=== PATIENT | female | born 1965 | race Caucasian/White ===

== ENCOUNTER 2017-10-25 16:42 | Emergency (ER) | payer BC ==
[~2017-10-25] VITALS: Ht 167.6 cm; Wt 76.8 kg
[2017-10-25 16:52] VITALS: TEMP 36.8; Ht 167.6 cm; Wt 76.8 kg
--- NOTE | 2017-10-25 18:24 | EMERGENCY ROOM VISIT NOTE ---
History Report prepared by Elmo: Pati Knapp Under the Supervision of: Dr. Juan Maya M.D. First contact with patient: 18:01 Chief Complaint: CHEST PAIN Stated Complaint: CHEST/BACK PAIN, LEFT ARM WEAK, HARD TO BREATHE Nursing Triage Summary: mid to left sided chest pain that radiates into back. Feels like she cant take a full deep breath. Denies any recent long travel. Denies cough. Denies cardiac history. Previous stress test was unremarkable. History of Present Illness The patient is a 52 year old female who presents to the Emergency Room with complaints of worsening chest pain starting yesterday morning. She states that it was not that bad yesterday, but was much worse waking up this morning. She states that the pain is in the center of her chest and radiates to her back. She describes the pain as sharp. She states that she noticed her left arm is now weak. The patient reports that the pain is worse with movement and breathing. The patient complains of fatigue. The patient denies being a smoker, recent injury, history of blood clots, abdominal pain, hematochezia, recent travel, and having Diabetes. The patient notes a history of Josie. She notes a family history of coronary artery disease and hypertension. She states that she had a stress test last year after her grandmother had stent placed. Source of History: patient Onset: yesterday morning Position: chest Quality: sharp Timing: worsening Modifying Factors (Worsening): breathing, movement Associated Symptoms: + back pain, + fatigue, + weakness, No abdominal pain, No hematochezia Review of Systems See HPI for pertinent positives & negatives. A total of 10 systems reviewed and were otherwise negative. 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 Nurse's notes were reviewed and I agree with. Family History FH: heart disease Hypertension Social History Smoking Status: Former Smoker Alcohol Use: none Drug Use: none Marital Status: Housing Status: lives with family Occupation Status: employed Current/Historical Medications Scheduled Aspirin (Aspirin Chewable), 81 MG PO UD Cholecalciferol (Vitamin D-3), 0 PO 1200 Cyanocobalamin (Vitamin B12), 0 PO 1200 Ibuprofen Tab (Advil), 400 MG PO UD Levothyroxine Sodium (Levothyroxine Sodium), 1 TAB PO QAM [Thyroid Action], 1 TAB PO QAM Allergies Coded Allergies: Codeine (Unverified Allergy, Severe, NAUSEA/VOMITTING, 10/25/17) Physical Exam Vital Signs Date Time Temp Pulse Resp B/P (MAP) Pulse Ox O2 Delivery O2 Flow Rate FiO2 10/25/17 22:03 66 18 114/66 97 10/25/17 20:58 68 18 116/71 98 Room Air 10/25/17 19:02 116/75 10/25/17 19:00 73 22 99 Room Air 10/25/17 18:45 67 20 10/25/17 18:19 70 10/25/17 16:56 99 Room Air 10/25/17 16:52 36.8 77 17 124/73 99 Room Air Physical Exam General: Non-ill appearing middle aged in no acute distress. HEENT: Normal cephalic atraumatic. Pupils are equal round and reactive to light. Extraocular movements are intact. Oropharynx is pink with moist mucous membranes. No swelling of the mouth lips or tongue. Neck: Supple with a midline trachea. No meningeal signs or stiffness, no JVD or bruits. No Stridor. Chest: Clear to auscultation bilaterally. No wheezes or rhonchi. No increased work of breathing. Pain is exacerbated with breathing. No respiratory distress. Heart: regular rate and rhythm. Abdomen: Soft nontender, nondistended without rebound guarding or rigidity. Extremities: No cyanosis clubbing or edema. No calf tenderness or assymetry Spine/Back. Non tender to palpation. No CVA tenderness Skin: Good turgor without rashes. Neurologic exam: Cranial nerves two through 12 are intact. Motor and sensation are intact and symmetrical throughout. LUE has normal strength and pulses on exam. Medical Decision & Procedures ER Provider Diagnostic Interpretation: Radiology results as stated below per my review and radiologist interpretation: CHEST COMBO ANGIO DISSECTION CLINICAL HISTORY: 52 years-old Female presenting with ^eval for aortic dissection ^chest and left post cp. TECHNIQUE: Multidetector CT angiography of the chest was performed before and after the administration of intravenous contrast. 3-D volumetric and/or maximum intensity projection (MIP) images were subsequently reconstructed for review. IV contrast: 119 mL of Optiray 320. A dose lowering technique was used consistent with the principles of ALARA (as low as reasonably achievable). COMPARISON: None. CT DOSE (mGy.cm): The estimated cumulative dose is 554.09 mGy.cm. FINDINGS: Back Tender Cylinder topogram: Unremarkable. Vasculature: The study is adequate for assessment of the aorta. Precontrast imaging demonstrates no evidence of intramural hematoma. Postcontrast imaging demonstrates no evidence of dissection, penetrating ulcer, or aneurysm. Allowing for timing of the contrast bolus, no gross evidence of a filling defect within the pulmonary arteries to suggest embolus. Main pulmonary artery is not enlarged. No flattening of the interventricular septum. No intracardiac filling defect. Reflux of contrast into the intrahepatic IVC. Remaining chest: On soft tissue windows, subcentimeter nodule may be present in the right thyroid lobe. No axillary, supraclavicular, hilar, or mediastinal lymphadenopathy. Normal heart size. No pericardial or pleural effusion. Upper abdomen normal. On lung windows, minimal dependent changes likely atelectasis. No other focal nodule or infiltrate. Airways patent. On bone windows, degenerative changes of the spine. IMPRESSION: 1. No evidence of acute aortic injury. No acute intrathoracic pathology. Electronically signed by: Luis Newton M.D. 10/25/2017 7:49 PM Dictated Date/Time: 10/25/2017 7:44 PM CHEST ONE VIEW PORTABLE CLINICAL HISTORY: 52 years-old Female presenting with CHEST PAIN. TECHNIQUE: Portable upright AP view of the chest was obtained. COMPARISON: None. FINDINGS: Atherosclerosis of the aortic arch. Cardiac silhouette normal in size. Lungs and pleural spaces clear. Osseous structures normal. Upper abdomen normal. IMPRESSION: 1. No acute cardiopulmonary disease. Electronically signed by: Luis Newton M.D. 10/25/2017 6:52 PM Dictated Date/Time: 10/25/2017 6:52 PM Laboratory Results 10/25/17 18:10 Red Blood Count 5.03, Mean Corpuscular Volume 87.9, Mean Corpuscular Hemoglobin 29.6, Mean Corpuscular Hemoglobin Concent 33.7, Mean Platelet Volume 11.0, Neutrophils (%) (Auto) 67.2, Lymphocytes (%) (Auto) 22.0, Monocytes (%) (Auto) 7.8, Eosinophils (%) (Auto) 2.3, Basophils (%) (Auto) 0.4, Neutrophils # (Auto) 5.23, Lymphocytes # (Auto) 1.71, Monocytes # (Auto) 0.61, Eosinophils # (Auto) 0.18, Basophils # (Auto) 0.03 10/25/17 18:10 Test 10/25/17 18:10 10/25/17 18:24 10/25/17 20:27 White Blood Count 7.78 K/uL (4.8-10.8) Red Blood Count 5.03 M/uL (4.2-5.4) Hemoglobin 14.9 g/dL (12.0-16.0) Hematocrit 44.2 % (37-47) Mean Corpuscular Volume 87.9 fL (80-100) Mean Corpuscular Hemoglobin 29.6 pg (25-34) Mean Corpuscular Hemoglobin Concent 33.7 g/dl (32-36) Platelet Count 201 K/uL (130-400) Mean Platelet Volume 11.0 fL (7.4-10.4) Neutrophils (%) (Auto) 67.2 % Lymphocytes (%) (Auto) 22.0 % Monocytes (%) (Auto) 7.8 % Eosinophils (%) (Auto) 2.3 % Basophils (%) (Auto) 0.4 % Neutrophils # (Auto) 5.23 K/uL (1.4-6.5) Lymphocytes # (Auto) 1.71 K/uL (1.2-3.4) Monocytes # (Auto) 0.61 K/uL (0.11-0.59) Eosinophils # (Auto) 0.18 K/uL (0-0.5) Basophils # (Auto) 0.03 K/uL (0-0.2) RDW Standard Deviation 43.3 fL (36.4-46.3) RDW Coefficient of Variation 13.4 % (11.5-14.5) Immature Granulocyte % (Auto) 0.3 % Immature Granulocyte # (Auto) 0.02 K/uL (0.00-0.02) Anion Gap 5.0 mmol/L (3-11) Est Creatinine Clear Calc Drug Dose 80.1 ml/min Estimated GFR () 90.0 Estimated GFR (Non- 77.7 BUN/Creatinine Ratio 17.8 (10-20) Calcium Level 9.1 mg/dl (8.5-10.1) Total Bilirubin 0.6 mg/dl (0.2-1) Direct Bilirubin 0.2 mg/dl (0-0.2) Aspartate Amino Transf (AST/SGOT) 23 U/L (15-37) Alanine Aminotransferase (ALT/SGPT) 30 U/L (12-78) Alkaline Phosphatase 95 U/L (45-117) Total Creatine Kinase 158 U/L (26-192) Creatine Kinase MB 1.4 ng/ml (0.5-3.6) Creatine Kinase MB Ratio 0.9 (0-3.0) Total Protein 8.2 gm/dl (6.4-8.2) Albumin 4.1 gm/dl (3.4-5.0) Lipase 166 U/L (73-393) Human Chorionic Gonadotropin, Qual NEG (NEG) Bedside D-Dimer 322 ng/mlFEU (0-450) Bedside Troponin I < 0.030 ng/ml (0-0.045) Laboratory studies as stated above per my review. Medications Administered Medications (Trade) Dose Ordered Sig/Emily Route Start Time Stop Time Status Last Admin Dose Admin Ketorolac Tromethamine (Toradol Inj) 30 mg NOW STAT IV 10/25/17 18:54 10/25/17 18:56 DC 10/25/17 19:03 30 MG ECG Indication: chest pain Rate (beats per minute): 69 Rhythm: normal sinus Findings: no acute ischemic change, no ectopy, other (normal intervals, normal QTc interval) Comparison ECG Date: REPEAT EKG Change: Patient's electrocardiogram was interpreted by me. Repeat EKG: Sinus bradycardia. Rate of 55. No acute ischemic change. No ectopy. No change from the first EKG. Normal axis. Normal QT. ED Course 1801: Past medical records reviewed. The patient was evaluated in room A4B, and a complete history and physical examination were performed. 1852: I reevaluated the patient and she appears comfortable. I ordered her Toradol for the pain. I ordered her a CT of her chest and explained the risks and benefits to her. She agrees. 1853: Ordered Toradol Inj 30 mg IV. 2038: I reevaluated the patient and she is doing well. 2154: Upon reevaluation, the patient is resting comfortable. I discussed the results and treatment plan with her. She verbalized agreement of the treatment plan. The patient was discharged home. Medical Decision Differential diagnoses include cardiac disease, arrhythmia, PE, aortic disease, infection, electrolyte abnormality, metabolic abnormality. This patient comes in as described above. She was placed in room A4. She is here for treatment and evaluation of chest and back pain. she also feels like she may have some weakness or tingling in her arm. her symptoms are worse when she moves or takes a deep breath. She's had no trauma. She does work in housekeeping. On exam, she appears non-ill and she has no neurologic deficits. She has good pulses in the arms. The symptoms are going on since yesterday. EKG shows no acute ischemic changes or ectopy. I did a second EKG while she was here and she has no change compared to her to the first. she has a negative troponin and a second negative troponin several hours later. Despite having multiple hours of pain since yesterday, the troponin have not bumped therefore is unlikely cardiac. I did a chest CT that has no evidence of dissection or other pathology. Her d-dimer was negative as well and I do not think is likely a PE. she's had nothing to suggest pneumonia or pneumothorax or CHF. This may be musculoskeletal. She feels good and would like to go home and have her use ibuprofen and follow up with her regular doctor. return if: increasing pain , worsening of symptoms, numbness or weakness, shortness of breath, chest pain, any new problems or concerns. She is happy with plan and was discharged to home. Medication Reconcilliation Current Medication List: was personally reviewed by me Blood Pressure Screening Patient's blood pressure: Normal blood pressure Blood pressure disposition: Did not require urgent referral Impression Primary Impression: Left-sided back pain Additional Impression: Pleurisy Scribe Attestation The scribe's documentation has been prepared under my direction and personally reviewed by me in its entirety. I confirm that the note above accurately reflects all work, treatment, procedures, and medical decision making performed by me. Departure Information Dispostion Home / Self-Care Referrals Tayler Lyles DO (PCP) Forms Call Back Authorization, HOME CARE DOCUMENTATION FORM, IMPORTANT VISIT INFORMATION Patient Instructions My [facility] Additional Instructions Rest. Drink plenty of fluids. Use ibuprofen 400 mg every 6 hours, take with food Return if: Increasing pain, shortness of breath, worsening symptoms, any new problems or concerns. Follow-up with your doctor in 1-2 days for recheck. Problem Qualifiers
[2017-10-25 18:30] LABS: BASO % 0.4 %; BASO ABS # 0.03 K/uL (0-0.2); EOS % 2.3 %; EOS ABS # 0.18 K/uL (0-0.5); HEMATOCRIT 44.2 % (37-47); HEMOGLOBIN 14.9 g/dL (12.0-16.0); IG# 0.02 K/uL (0.00-0.02); LYMPH ABS # 1.71 K/uL (1.2-3.4); MEAN CELL VOLUME 87.9 fL (80-100); MEAN CORPUSCULAR HEMOGLOBIN 29.6 pg (25-34); MEAN CORPUSCULAR HGB CONC 33.7 g/dl (32-36); MONO % 7.8 %; MONO ABS # 0.61 K/uL (0.11-0.59); NEUT % 67.2 %; NEUT ABS # 5.23 K/uL (1.4-6.5); PLATELET COUNT 201 K/uL (130-400); RED CELL DISTRIBUTION WIDTH CV 13.4 % (11.5-14.5); RED CELL DISTRIBUTION WIDTH SD 43.3 fL (36.4-46.3); WHITE BLOOD COUNT 7.78 K/uL (4.8-10.8)
[2017-10-25 18:47] LABS: ALBUMIN 4.1 gm/dl (3.4-5.0); CALCIUM 9.1 mg/dl (8.5-10.1); CREATININE 0.86 mg/dl (0.60-1.20); POTASSIUM 3.9 mmol/L (3.5-5.1)
[2017-10-25 18:52] LABS: CKMB 1.4 ng/ml (0.5-3.6); TOTAL PROTEIN 8.2 gm/dl (6.4-8.2)
[2017-10-25] MEDS ORDERED: KETOROLAC TROMETHAMINE 30 MG/ML VIAL IV STA (18:54)
--- NOTE | 2017-10-25 18:54 | DIAGNOSTIC IMAGING REPORT ---
CHEST ONE VIEW PORTABLE CLINICAL HISTORY: 52 years-old Female presenting with CHEST PAIN. TECHNIQUE: Portable upright AP view of the chest was obtained. COMPARISON: None. FINDINGS: Atherosclerosis of the aortic arch. Cardiac silhouette normal in size. Lungs and pleural spaces clear. Osseous structures normal. Upper abdomen normal. IMPRESSION: 1. No acute cardiopulmonary disease. Electronically signed by: Luis Newton M.D. 10/25/2017 6:52 PM Dictated Date/Time: 10/25/2017 6:52 PM
[2017-10-25] MEDS ORDERED: OPTIRAY 320 IV PRN (19:15)
--- NOTE | 2017-10-25 19:50 | DIAGNOSTIC IMAGING REPORT ---
CHEST COMBO ANGIO DISSECTION CLINICAL HISTORY: 52 years-old Female presenting with ^eval for aortic dissection ^chest and left post cp. TECHNIQUE: Multidetector CT angiography of the chest was performed before and after the administration of intravenous contrast. 3-D volumetric and/or maximum intensity projection (MIP) images were subsequently reconstructed for review. IV contrast: 119 mL of Optiray 320. A dose lowering technique was used consistent with the principles of ALARA (as low as reasonably achievable). COMPARISON: None. CT DOSE (mGy.cm): The estimated cumulative dose is 554.09 mGy.cm. FINDINGS: District Recruiter topogram: Unremarkable. Vasculature: The study is adequate for assessment of the aorta. Precontrast imaging demonstrates no evidence of intramural hematoma. Postcontrast imaging demonstrates no evidence of dissection, penetrating ulcer, or aneurysm. Allowing for timing of the contrast bolus, no gross evidence of a filling defect within the pulmonary arteries to suggest embolus. Main pulmonary artery is not enlarged. No flattening of the interventricular septum. No intracardiac filling defect. Reflux of contrast into the intrahepatic IVC. Remaining chest: On soft tissue windows, subcentimeter nodule may be present in the right thyroid lobe. No axillary, supraclavicular, hilar, or mediastinal lymphadenopathy. Normal heart size. No pericardial or pleural effusion. Upper abdomen normal. On lung windows, minimal dependent changes likely atelectasis. No other focal nodule or infiltrate. Airways patent. On bone windows, degenerative changes of the spine. IMPRESSION: 1. No evidence of acute aortic injury. No acute intrathoracic pathology. Electronically signed by: Luis Newton M.D. 10/25/2017 7:49 PM Dictated Date/Time: 10/25/2017 7:44 PM
[2017-10-25] MEDS ORDERED: LEVO88TA3 PO (19:57)
[2017-10-25] MEDS ORDERED: [UNRECOGNIZED DRUG - OTHER] PO (20:02)
[2017-10-25] MEDS ORDERED: CYAN100020 PO (20:02)
[2017-10-25] MEDS ORDERED: CHOL1CAP67 PO (20:02)
[2017-10-25] MEDS ORDERED: IBUP-103 PO (20:03)
[2017-10-25] MEDS ORDERED: ASPCH81X PO (20:04)
[2017-10-25 22:03] VITALS: BP 114/66; PULSE 66; O2SAT 97
== END 2017-10-25 22:03 | disposition home or self-care (01) ==
LOC: C.EDB 16:44 → C.EDA 22:03
DX: R09.1 Pleurisy (principal); M54.9 Dorsalgia, unspecified; R06.00 Dyspnea, unspecified; E06.3 Autoimmune thyroiditis; Z79.899 Other long term (current) drug therapy; Z88.5 Allergy status to narcotic agent

== ENCOUNTER 2023-03-23 17:50 | Observation (INO) ==
[2023-03-23 18:51] LABS: Basophils # (auto) 0.05 K/uL (0-0.2); Basophils % (auto) 0.6 %; Eosinophils # (auto) 0.11 K/uL (0-0.50); Eosinophils % (auto) 1.3 %; Hematocrit (blood only) 41.4 % (37.0-47.0); Immature Granulocytes # (auto) 0.02 K/uL (0.01-0.20); Immature Granulocytes % (auto) 0.2 %; Lymphocytes # (auto) 1.18 K/uL (1.2-3.4); Lymphocytes % (auto) 13.8 %; Mean Corpuscular Hemoglobin 29.6 pg (25.0-34.0); Mean Corpuscular Hgb Conc 33.8 g/dL (32.0-36.0); Mean Corpuscular Volume 87.5 fL (80.0-100.0); Monocytes # (auto) 0.64 K/uL (0.11-0.59); Monocytes % (auto) 7.5 %; Neutrophils # (auto) 6.56 K/uL (1.40-6.50); Neutrophils % (auto) 76.6 %; Platelet Count 187 K/uL (130-400); RDW Coefficient of Variation 13.2 % (11.5-14.5); RDW Standard Deviation 42.4 fL (36.4-46.3); Red Blood Count 4.73 M/uL (4.20-5.40); White Blood Count 8.56 K/ul (4.8-10.8)
[2023-03-23 18:56] LABS: Albumin Globulin Ratio 1.4 (0.9-2); Albumin Level 4.2 gm/dl (3.4-5.0); BUN Creatinine Ratio 22.9 (10-20); Bilirubin,Total 0.8 mg/dl (0.2-1.0); Calcium 9.3 mg/dl (8.6-10.3); Creatinine Clr Calc Pharmacy 80.3 ml/min; Est GFR (African American) 90.7 ml/min; Est GFR (Non-African American) 78.3 ml/min; Globulin 3.1 gm/dl (2.5-4.0); Potassium 4.2 mmol/L (3.5-5.1); Total Protein 7.3 gm/dl (6.0-8.3)
[2023-03-23 19:26] LABS: Appearance Urine Clear (Clear); Bacteria Urine Automated Negative (Negative); Bilirubin Urine Negative (Negative); Blood Urine Negative (Negative); Color Urine Yellow; Epithelial Cell Urine Auto >30 /lpf (0-5); Glucose Urine UA Negative (Negative); Ketones Urine Trace (Negative); Leukocyte Esterase Urine 1+ (Negative); Nitrite Urine Negative (Negative); Protein Urine Negative (Negative); RBC Urine Automated 0-4 /hpf (0-4); Specific Gravity Urine 1.023 (1.000-1.030); Urobilinogen Urine Negative (Negative)
[2023-03-23] MEDS ORDERED: OPTIRAY 320 100ml IV ONE (19:36)
--- NOTE | 2023-03-23 19:48 | Emergency Department Note ---
Impression & Plan Appendicitis ED Provider Note Provider: Manpreet Salinas MD DATE OF SERVICE: 03/23/2023 CHIEF COMPLAINT: Right-sided abdominal pain HISTORY OF PRESENT ILLNESS: Patient is a 57-year-old female history of hypothyroidism presenting here today with onset about 36 hours ago of some right-sided abdominal discomfort. Decreased appetite but no severe nausea or diarrhea. Pain improved a bit with ibuprofen. Persistence and some tenderness and worse with movement. Denies history of abdominal surgery. Denies left- sided abdominal pain. Denies urinary symptoms. Did some googling and was concerned this could represent her appendix so came in for evaluation given the weekend. PAST MEDICAL HISTORY: As noted above MEDICATIONS: Reviewed home medications SOCIAL HISTORY: Non smoke PHYSICAL EXAM: GENERAL: alert and oriented in no acute distress on stretcher Head: normocephalic and atraumatic EYES: No injection, discharge or icterus. NECK: Trachea midline. ENT: Mucous membranes pink and moist. LUNGS: Airway patent. No retractions or tachypnea HEART: Regular rate and rhythm. No chest wall tenderness ABDOMEN: Soft with right-sided tenderness particular in the right lower quadrant. No guarding or left-sided tenderness. Not impressive right upper quadrant tenderness. SKIN: Acyanotic, warm, dry, without rashes EXTREMITIES: Without swelling, tenderness or deformity NEUROLOGICAL: No focal deficits. No aphasia. No facial droop or slurred speech. Normal strength and tone in the extremities. Sensation to gross touch normal. Ambulatory. Patient's laboratory studies and imaging reviewed. Differential includes Appendicitis, infections, diverticulitis, UTI, obstruction, mesenteric ischemia, aortic pathology, inflammatory bowel disease, renal colic, PUD, pancreatitis, biliary pathology, hernia, volvulus, constipation, as well as other pathologies. IMPRESSION/MEDICAL DECISION MAKING: Patient with some right-sided discomfort. She has some tenderness here more in the right lower quadrant. Seems atypical for kidney stone also location is seemingly somewhat low for cholecystitis. Does not seem peritoneal and doubt perforation. Does not seem obstructed. Denies urinary symptoms. Would seem very atypical for pulmonary or cardiac pathology given location. Denies need for pain medication. Denies significant nausea. Blood work here reassuring without significant leukocytosis. No signs of hepatitis or pancreatitis based on labs. Normal renal function. CT scan completed with evidence of acute appendicitis nonperforated. Discussed with surgery team. Given some Toradol for pain and Zosyn for antibiotics. Seen by the surgery team and consented to go to the OR for definite care. DIAGNOSIS: Acute appendicitis DISPOSITION: Further care with the surgical team Past Med/Surg History Medical History H/O Josie thyroiditis Surgical History No pertinent past surgical history Social History Smoking Status: Never smoker Hx Alcohol Use: Yes Hx Substance Use: No Feels Safe at Home: Yes Allergies Allergies Allergy/AdvReac Type Severity Reaction Status Date / Time codeine Allergy Severe NAUSEA/VOMI Unverified 07/24/21 07:23 TTING Home Meds Home Medications Medication Instructions Recorded Confirmed levothyroxine 100 mcg tablet 100 mcg PO HS 07/24/21 08/08/21 (Synthroid) multivitamin 1 tab PO QAM 07/24/21 08/08/21 ibuprofen 200 mg tablet 400 mg PO Q6H PRN Headache 08/08/21 08/08/21 Results & Data (ED) Vital Signs Vital Signs - 24 hr 03/23/23 17:56 03/23/23 19:07 03/23/23 21:13 Temperature 36.5 C Temperature Source Temporal Artery Scan Pulse Rate 81 Pulse Rate [Finger] 73 77 Pulse Rhythm Regular Pulse Rhythm [Finger] Regular Respiratory Rate 20 18 18 Respiratory Effort / Characteristics Non-Labored Spontaneous Non-Labored Spontaneous Non-Labored Spontaneous Respiratory Depth Normal Normal Normal Respiratory Pattern Regular Regular Blood Pressure 115/82 Blood Pressure [Right Arm] 123/71 124/76 Blood Pressure Mean 93 Blood Pressure Mean [Right Arm] 88 92 Blood Pressure Position [Right Arm] Lying Lying Pulse Oximetry 98 96 97 Oxygen Delivery Method Room Air Room Air Room Air Sepsis Recent Fever Within 48 Hours No Sepsis New/Unexplained Change in Mental Status No Sepsis Action Taken by Nursing No Action Required 03/23/23 21:15 03/23/23 22:19 Temperature Temperature Source Pulse Rate 73 Pulse Rate [Finger] Pulse Rhythm Pulse Rhythm [Finger] Respiratory Rate Respiratory Effort / Characteristics Respiratory Depth Respiratory Pattern Blood Pressure Blood Pressure [Right Arm] Blood Pressure Mean Blood Pressure Mean [Right Arm] Blood Pressure Position [Right Arm] Pulse Oximetry Oxygen Delivery Method Room Air Sepsis Recent Fever Within 48 Hours Sepsis New/Unexplained Change in Mental Status Sepsis Action Taken by Nursing Laboratory Data 03/23/23 18:13 03/23/23 18:13 Lab Results 03/23/23 03/23/23 03/23/23 Range/Units 18:13 18:13 18:58 WBC 8.56 (4.8-10.8) K/ul RBC 4.73 (4.20-5.40) M/uL Hgb 14.0 (12.0-16.0) g/dl Hct 41.4 (37.0-47.0) % MCV 87.5 (80.0-100.0) fL MCH 29.6 (25.0-34.0) pg MCHC 33.8 (32.0-36.0) g/dL RDW Std Deviation 42.4 (36.4-46.3) fL RDW Coeff of Abilio 13.2 (11.5-14.5) % Plt Count 187 (130-400) K/uL MPV 11.0 (9.4-12.4) fL Immature Gran % (Auto) 0.2 % Neut % (Auto) 76.6 % Lymph % (Auto) 13.8 % [place] % (Auto) 7.5 % Eos % (Auto) 1.3 % Baso % (Auto) 0.6 % Neut # (Auto) 6.56 H (1.40-6.50) K/uL Lymph # (Auto) 1.18 L (1.2-3.4) K/uL [place] # (Auto) 0.64 H (0.11-0.59) K/uL Eos # (Auto) 0.11 (0-0.50) K/uL Baso # (Auto) 0.05 (0-0.2) K/uL Immature Gran # (Auto) 0.02 (0.01-0.20) K/uL Sodium 139 (136-145) mmol/L Potassium 4.2 (3.5-5.1) mmol/L Chloride 104 (98-107) mmol/L Carbon Dioxide 27 (21-32) mmol/L Anion Gap 8 (3-11) BUN 19 (6-23) mg/dl Creatinine 0.83 (0.6-1.2) mg/dl Est Cr Clr Drug Dosing 80.3 ml/min Est GFR ( Amer) 90.7 ml/min Est GFR (Non-Af Amer) 78.3 ml/min BUN/Creatinine Ratio 22.9 H (10-20) Glucose 96 (70-99(Fasting)) mg/dl Calcium 9.3 (8.6-10.3) mg/dl Total Bilirubin 0.8 (0.2-1.0) mg/dl AST 26 (13-39) U/L ALT 24 (7-52) U/L Alkaline Phosphatase 79 (34-104) U/L Total Protein 7.3 (6.0-8.3) gm/dl Albumin 4.2 (3.4-5.0) gm/dl Globulin 3.1 (2.5-4.0) gm/dl Albumin/Globulin Ratio 1.4 (0.9-2) Lipase 27 (11-82) U/L Urine Color Yellow Urine Appearance Clear (Clear) Urine pH 7.0 (4.5-7.5) Ur Specific [place] 1.023 (1.000-1.030) Urine Protein Negative (Negative) Urine Glucose (UA) Negative (Negative) Urine Ketones Trace H (Negative) Urine Blood Negative (Negative) Urine Nitrite Negative (Negative) Urine Bilirubin Negative (Negative) Urine Urobilinogen Negative (Negative) Ur Leukocyte Esterase 1+ H (Negative) Urine WBC (Auto) 1-5 (0-5) /hpf Urine RBC (Auto) 0-4 (0-4) /hpf U Hyaline Cast (Auto) 1-5 (0-5) /lpf U Epithel Cells (Auto) >30 H (0-5) /lpf Urine Bacteria (Auto) Negative (Negative) SARS-CoV-2, RNA, NAAT (NEGATIVE) 03/23/23 Range/Units 21:47 WBC (4.8-10.8) K/ul RBC (4.20-5.40) M/uL Hgb (12.0-16.0) g/dl Hct (37.0-47.0) % MCV (80.0-100.0) fL MCH (25.0-34.0) pg MCHC (32.0-36.0) g/dL RDW Std Deviation (36.4-46.3) fL RDW Coeff of Abilio (11.5-14.5) % Plt Count (130-400) K/uL MPV (9.4-12.4) fL Immature Gran % (Auto) % Neut % (Auto) % Lymph % (Auto) % [place] % (Auto) % Eos % (Auto) % Baso % (Auto) % Neut # (Auto) (1.40-6.50) K/uL Lymph # (Auto) (1.2-3.4) K/uL [place] # (Auto) (0.11-0.59) K/uL Eos # (Auto) (0-0.50) K/uL Baso # (Auto) (0-0.2) K/uL Immature Gran # (Auto) (0.01-0.20) K/uL Sodium (136-145) mmol/L Potassium (3.5-5.1) mmol/L Chloride (98-107) mmol/L Carbon Dioxide (21-32) mmol/L Anion Gap (3-11) BUN (6-23) mg/dl Creatinine (0.6-1.2) mg/dl Est Cr Clr Drug Dosing ml/min Est GFR ( Amer) ml/min Est GFR (Non-Af Amer) ml/min BUN/Creatinine Ratio (10-20) Glucose (70-99(Fasting)) mg/dl Calcium (8.6-10.3) mg/dl Total Bilirubin (0.2-1.0) mg/dl AST (13-39) U/L ALT (7-52) U/L Alkaline Phosphatase (34-104) U/L Total Protein (6.0-8.3) gm/dl Albumin (3.4-5.0) gm/dl Globulin (2.5-4.0) gm/dl Albumin/Globulin Ratio (0.9-2) Lipase (11-82) U/L Urine Color Urine Appearance (Clear) Urine pH (4.5-7.5) Ur Specific [place] (1.000-1.030) Urine Protein (Negative) Urine Glucose (UA) (Negative) Urine Ketones (Negative) Urine Blood (Negative) Urine Nitrite (Negative) Urine Bilirubin (Negative) Urine Urobilinogen (Negative) Ur Leukocyte Esterase (Negative) Urine WBC (Auto) (0-5) /hpf Urine RBC (Auto) (0-4) /hpf U Hyaline Cast (Auto) (0-5) /lpf U Epithel Cells (Auto) (0-5) /lpf Urine Bacteria (Auto) (Negative) SARS-CoV-2, RNA, NAAT NEGATIVE (NEGATIVE) Administered Medications Discontinued Medications Bupivacaine HCl (Bupivacaine 0.5 % 5 Mg/1 Ml Mpf 30ml Vial) Confirm Administered Dose 30 ml .ROUTE .STK-MED ONE Stop: 03/23/23 22:15 Last Admin: 03/23/23 23:53 Dose: 10 ml Documented By: OPHELIA Piperacillin Sod/Tazobactam Sod (Zosyn) 4.5 gm in 120 mls @ 240 mls/hr IV NOW ONE Stop: 03/23/23 22:06 Last Admin: 03/23/23 21:47 Dose: 240 mls/hr Documented By: CHARLES Ioversol (Optiray 320 100ml) 93 ml IV ONCE ONE Stop: 03/23/23 19:37 Last Admin: 03/23/23 19:36 Dose: 93 ml Documented By: ADOLFO Ketorolac Tromethamine (Ketorolac Tromethamine 15 Mg/Ml Vial) 15 mg IV NOW STA Stop: 03/23/23 21:26 Last Admin: 03/23/23 21:29 Dose: 15 mg Documented By: CHARLES Scopolamine (Scopolamine 1 Mg Tdsy) Confirm Administered Dose 1 mg TD [facility] ONE Stop: 03/23/23 22:41 Last Admin: 03/23/23 22:48 Dose: 1 mg Documented By: JHONNY Imaging Data Radiologist's Impression: Abdomen/Pelvis CT 03/23/23 19:23 CR Exam(s): CT ABDOMEN + PELVIS With Contrast IV Amt: 93ml optiray 320 EXAM: CT Abdomen and Pelvis With Intravenous Contrast CLINICAL HISTORY: Reason for exam: R abd pain. TECHNIQUE: Axial computed tomography images of the abdomen and pelvis with intravenous contrast. CTDI is 25.23 mGy and DLP is 1238.52 mGy-cm. Automated exposure control was utilized for the study. A dose lowering technique was utilized adhering to the principles of ALARA. CONTRAST: Patient received 93ml optiray 320 of IV contrast COMPARISON: No relevant prior studies available. FINDINGS: Lung bases: Unremarkable. No mass. No consolidation. ABDOMEN: Liver: Unremarkable. No mass. Gallbladder and bile ducts: Unremarkable. No calcified stones. No ductal dilation. Pancreas: Unremarkable. No mass. No ductal dilation. Spleen: Unremarkable. No splenomegaly. Adrenals: Unremarkable. No mass. Kidneys and ureters: Unremarkable. No solid mass. No hydronephrosis. Stomach and bowel: Unremarkable. No obstruction. No mucosal thickening. PELVIS: Appendix: The appendix is inflamed, demonstrating wall thickening and a caliber of 11 mm. Periappendiceal inflammation is seen. Bladder: Unremarkable. No mass. Reproductive: Unremarkable as visualized. ABDOMEN and PELVIS: Intraperitoneal space: Unremarkable. No free air. Trace fluid seen in the pelvis. Bones/joints: No acute fracture. No dislocation. Soft tissues: Unremarkable. Vasculature: Unremarkable. No abdominal aortic aneurysm. Lymph nodes: Unremarkable. No enlarged lymph nodes. IMPRESSION: Acute appendicitis. No evidence of perforation. Communications: Call Doctor Appendicitis Electronically signed by: Ede Rangel MD 03/23/23 21:33 PM Chest X-Ray 03/23/23 21:54 SINGLE VIEW CHEST CLINICAL HISTORY: Preoperative examination FINDINGS: An AP, portable, upright chest radiograph is compared to study dated 07/24/2021. The cardiomediastinal silhouette is unremarkable. The lungs and pleural spaces are clear. No pneumothorax is seen. The bony thorax is grossly intact. IMPRESSION: No active disease in the chest. ACT 112: Negative or not required by law. Electronically signed by: Michele Helms M.D. 03/23/2023 10:57 PM Discharge Plan Visit Data Chief Complaint: Abdominal Pain Stated Complaint: ABD PAIN ED Provider: Manpreet Salinas Discharge Problem: Appendicitis Discharge Instructions Interventions: ED Discharge Assessment Last Done: 03/23/23 22:19
[2023-03-23] MEDS ORDERED: KETOROLAC TROMETHAMINE 15 MG/ML VIAL IV STA (21:25)
--- NOTE | 2023-03-23 21:33 | CT Scan Report ---
Exam(s): CT ABDOMEN + PELVIS With Contrast IV Amt: 93ml optiray 320 EXAM: CT Abdomen and Pelvis With Intravenous Contrast CLINICAL HISTORY: Reason for exam: R abd pain. TECHNIQUE: Axial computed tomography images of the abdomen and pelvis with intravenous contrast. CTDI is 25.23 mGy and DLP is 1238.52 mGy-cm. Automated exposure control was utilized for the study. A dose lowering technique was utilized adhering to the principles of ALARA. CONTRAST: Patient received 93ml optiray 320 of IV contrast COMPARISON: No relevant prior studies available. FINDINGS: Lung bases: Unremarkable. No mass. No consolidation. ABDOMEN: Liver: Unremarkable. No mass. Gallbladder and bile ducts: Unremarkable. No calcified stones. No ductal dilation. Pancreas: Unremarkable. No mass. No ductal dilation. Spleen: Unremarkable. No splenomegaly. Adrenals: Unremarkable. No mass. Kidneys and ureters: Unremarkable. No solid mass. No hydronephrosis. Stomach and bowel: Unremarkable. No obstruction. No mucosal thickening. PELVIS: Appendix: The appendix is inflamed, demonstrating wall thickening and a caliber of 11 mm. Periappendiceal inflammation is seen. Bladder: Unremarkable. No mass. Reproductive: Unremarkable as visualized. ABDOMEN and PELVIS: Intraperitoneal space: Unremarkable. No free air. Trace fluid seen in the pelvis. Bones/joints: No acute fracture. No dislocation. Soft tissues: Unremarkable. Vasculature: Unremarkable. No abdominal aortic aneurysm. Lymph nodes: Unremarkable. No enlarged lymph nodes. IMPRESSION: Acute appendicitis. No evidence of perforation. Communications: Call Doctor Appendicitis Electronically signed by: Ede Rangel MD 03/23/23 21:33 PM
[2023-03-23] MEDS ORDERED: PIPERACILLIN/TAZOBACTAM 4.5 GM/120 ML BAG IV ONE (21:37)
--- NOTE | 2023-03-23 21:54 | History & Physical Report ---
Date of Service March 23, 2023 Assessment & Plan (1) Appendicitis: Plan: Due to the patient's clinical presentation and findings on imaging she will be admitted to the hospital we will proceed as follows: We are temporally planning on an appendectomy performed by Dr. Ponce this evening. Antibiotics have been administered in the emergency department in form of Zosyn We will keep the patient n.p.o. We will administer IV fluids for hydration measures Analgesia will be provided Antiemetics will be provided Additional recommendations were forthcoming based on operative findings and the patient's postoperative recovery thereafter SCDs to be used for DVT prevention, no chemical means due to planned surgery She will be a level 1 full code History of Present Illness Chief Complaint: Abdominal pain Primary Care Provider: Bella Navarro MD This is a 57-year-old female who developed some abdominal pain approximately 2 days ago. Patient notes that the pain is located primarily in the right lower quadrant and she does not note any modifying factors. She does not had any fevers, shakes, or chills. She has not had any associated nausea or vomiting. Patient notes that she has had 1 prior abdominal surgery as she has had a laparoscopy for an ectopic . The patient notes that she leads an active lifestyle and does not get chest pain or shortness of breath with her daily activities and says that she can easily walk 1 mile on a flat surface without any difficulty Since arrival to the hospital the patient has had labs and imaging which independent reviewed. CBC revealed white blood cell count, hemoglobin, hematocrit, and platelet count were all within normal range. Chemistry profile showed sodium, potassium, BUN, and creatinine were normal. There is no elevation of LFTs or lipase. Urinalysis did show 1+ leukocyte Estrace but was otherwise not indicative of infection. CT scan of the abdomen and pelvis showed the patient had an acute appendicitis as the appendix was inflamed and had wall thickening and was dilated to approximate 11 mm. Periappendiceal inflammation was noted. There is no evidence of abscess or rupture. At the time my interview the patient was resting comfortably in bed and she was in no distress. Allergies Allergy/AdvReac Type Severity Reaction Status Date / Time codeine Allergy Severe NAUSEA/VOMI Unverified 07/24/21 07:23 TTING Home Medications Medication Instructions Recorded Confirmed Type levothyroxine 100 mcg tablet 100 mcg PO HS 07/24/21 08/08/21 History (Synthroid) multivitamin 1 tab PO QAM 07/24/21 08/08/21 History ibuprofen 200 mg tablet 400 mg PO Q6H PRN Headache 08/08/21 08/08/21 History Past Med/Surg History Medical History H/O Josie thyroiditis Surgical History No pertinent past surgical history Social History Smoking Status: Never smoker Hx Alcohol Use: Yes Hx Substance Use: No Feels Safe at Home: Yes Review of Systems Constitutional: no fever and no chills Ear, Nose, Mouth, Throat: no ear pain Respiratory: no cough and no dyspnea Cardiovascular: no chest pain Gastrointestinal: as per Subjective / HPI Genitourinary: no dysuria Musculoskeletal: no back pain Integumentary: no rash Neurologic: no localized weakness Physical Exam Constitutional: WD/WN, vitals as above Eyes: no conjunctival abnormality ENMT: Ears: no hearing impairment and no external ear abnormality Mouth: no oropharynx abnormality Neck: trachea midline Respiratory: normal respiratory effort; no respiratory distress and no labored breathing Cardiovascular: Rate/Rhythm: regular rate and regular rhythm Gastrointestinal (Abdomen): Abdomen is soft, nonrigid, nondistended. Patient did have pain with palpation in the right lower quadrant with some slight rebound tenderness noted. Musculoskeletal: No calf tenderness Skin: no rashes Neurologic: moves all extremities Psychiatric: A+Ox3, euthymic affect Results & Data Results & Data Vital Signs (Past 12 Hours) Vital Signs Temp Pulse Pulse Resp BP BP Pulse Ox 03/23/23 21:15 73 03/23/23 21:13 77 18 124/76 97 03/23/23 19:07 73 18 123/71 96 03/23/23 17:56 36.5 C 81 20 115/82 98 O2 Del Method 03/23/23 21:15 03/23/23 21:13 Room Air 03/23/23 19:07 Room Air 03/23/23 17:56 Room Air PG Care Time/CCT Total # of Minutes Spent Total Time Spent with Patient: Total time spent is greater than 50% in coordination of care (as documented) at patient's floor/unit and/or counseling patient: Coding Level of Care Code 11706 INT INP/OBS CARE MIN Diagnoses Appendicitis K37
[2023-03-23] MEDS ORDERED: LACTATED RINGER'S 1,000 ML IV SCH (22:00)
[2023-03-23] MEDS ORDERED: BUPIVACAINE 0.5 % 5 MG/1 ML MPF 30ML VIAL ONE (22:14)
[2023-03-23] MEDS ORDERED: fentaNYL citrate PF 100 MCG/2 ML VIAL IV PRN (22:30)
[2023-03-23] MEDS ORDERED: ePHEDrine sulfate 50 MG/ML AMP IV PRN (22:30)
[2023-03-23] MEDS ORDERED: PROMETHAZINE HCL 6.25 MG in SODIUM CHLORIDE 0.9% 50 ML IV PRN (22:30)
[2023-03-23] MEDS ORDERED: ATROPINE SULFATE 0.1 MG/ML 10ML SYR IV PRN (22:30)
[2023-03-23] MEDS ORDERED: ONDANSETRON INJ 2 MG/ML 2 ML VIAL IV PRN (22:30)
--- NOTE | 2023-03-23 22:33 | Anesthesiology Consultation ---
Date of Service March 23, 2023 Assessment & Plan Chart Review Chart Review: Acceptable Risk for Surgery and Patient NOT seen in Pre Admission Testing Consults Requested none ASA ASA2E Proposed Anesthesia Anesthesia Type: General Risk / Benefits Reviewed With: PT / POA / Parent / Guardian, Accepts Plan and Informed Consent Obtained History Surgery Operation Date: 03/23/23 21:50 Proposed Procedures p Laparoscopic Appendectomy, possible open - Krish Ponce MD, FACS Height/Weight Height: 5 ft 6 in Weight: 81.1 kg Allergies Allergy/AdvReac Type Severity Reaction Status Date / Time codeine Allergy Severe NAUSEA/VOMI Unverified 07/24/21 07:23 TTING Medications Home Medications Medication Instructions Recorded Confirmed Last Taken levothyroxine 100 mcg tablet 100 mcg PO HS 07/24/21 08/08/21 08/07/21 (Synthroid) multivitamin 1 tab PO QAM 07/24/21 08/08/21 08/08/21 ibuprofen 200 mg tablet 400 mg PO Q6H PRN Headache 08/08/21 08/08/21 08/08/21 Past Medical History Medical History H/O Josie thyroiditis Exercise / Class Metabolic Activity II 4-5 Yardwork/Stairs/Walk up hill Past Surgical History Surgical History No pertinent past surgical history Past Anesthesia History No Hx of Anesthesia Complications and No Family Hx of Anesthesia Complications History of PONV No Hx of PONV and No Hx of Motion Sickness Social History Smoking Status: Never smoker Hx Alcohol Use: Yes Hx Substance Use: No Physical Exam Vital Signs Last Vital Signs Temp 36.5 C 03/23/23 17:56 Pulse 73 03/23/23 21:15 Resp 18 03/23/23 21:13 BP 124/76 03/23/23 21:13 Pulse Ox 97 03/23/23 21:13 O2 Del Method Room Air 03/23/23 22:19 ENMT Mouth: no dentition abnormality Thyromental Distance: > or= 3.5 Finger Breadths Mallampati Class: II Neck normal visual inspection Respiratory normal respiratory effort Auscultation: lungs clear to auscultation bilaterally Cardiovascular Rate/Rhythm: regular rate and regular rhythm Psychiatric Orientation: alert Testing Laboratory Results 03/23/23 18:13 03/23/23 18:13 Urine Color Yellow 03/23/23 18:58 Urine Appearance Clear (Clear) 03/23/23 18:58 Urine pH 7.0 (4.5-7.5) 03/23/23 18:58 Ur Specific [place] 1.023 (1.000-1.030) 03/23/23 18:58 Urine Protein Negative (Negative) 03/23/23 18:58 Urine Glucose (UA) Negative (Negative) 03/23/23 18:58 Urine Ketones Trace (Negative) H 03/23/23 18:58 Urine Nitrite Negative (Negative) 03/23/23 18:58 Ur Leukocyte Esterase 1+ (Negative) H 03/23/23 18:58 Urine WBC (Auto) 1-5 /hpf (0-5) 03/23/23 18:58 Urine RBC (Auto) 0-4 /hpf (0-4) 03/23/23 18:58 U Hyaline Cast (Auto) 1-5 /lpf (0-5) 03/23/23 18:58 U Epithel Cells (Auto) >30 /lpf (0-5) H 03/23/23 18:58 Urine Bacteria (Auto) Negative (Negative) 03/23/23 18:58
[2023-03-23] MEDS ORDERED: SCOPOLAMINE 1 MG TDSY TD ONE (22:40)
--- NOTE | 2023-03-23 22:59 | XRay Report ---
SINGLE VIEW CHEST CLINICAL HISTORY: Preoperative examination FINDINGS: An AP, portable, upright chest radiograph is compared to study dated 07/24/2021. The cardiom ediastinal silhouette is unremarkable. The lungs and pleural spaces are clear. No pneumothorax is see n. The bony thorax is grossly intact. IMPRESSION: No active disease in the chest. ACT 112: Negative or not required by law. Electronically signed by: Michele Helms M.D. 03/23/2023 10:57 PM
[2023-03-23] MEDS ORDERED: MoRPHine SULFATE PF 1 MG/ML 10 ML AMP/VIAL ONE (23:14)
[2023-03-23] MEDS ORDERED: ONDANSETRON INJ 2 MG/ML 2 ML VIAL ONE (23:46)
[2023-03-23] MEDS ORDERED: KETOROLAC 30 MG/ML VIAL ONE (23:46)
[2023-03-23] MEDS ORDERED: PROPOFOL IV EMULSION 10 MG/ML 20 ML VIAL IV ONE ×2 (23:46)
[2023-03-23] MEDS ORDERED: SUGAMMADEX SODIUM 200 MG/2 ML VIAL IV ONE (23:46)
[2023-03-23] MEDS ORDERED: DEXAMETHASONE SOD INJ 4 MG/ML VIAL ONE (23:46)
[2023-03-23] MEDS ORDERED: ROCURONIUM BROMIDE 10 MG/ML 5 ML VIAL IV ONE (23:47)
[2023-03-23] MEDS ORDERED: SUCCINYLCHOLINE 100MG/5ML SYR IV ONE (23:47)
--- NOTE | 2023-03-23 23:53 | Post Operative Brief Note ---
PG Immediate Post Op with CF Date of Surgery March 23, 2023 Pre & Post Diagnosis Operation Date: 03/23/23 21:50 <No data on this case meets the specified criteria> Acute appendicitis I identified the patient and participated in the time-out.: Yes Procedure Operation Date: 03/23/23 21:50 <No data on this case meets the specified criteria> Laparoscopic appendectomy Surgeon Krish Ponce MD, FACS Quality Improvement Manager cristhian blackburn Estimated Blood Loss 10 Findings Consistent with Post-Op Diagnosis Severe acute appendicitis Specimens Specimen Description: A. Appendix
[2023-03-23] MEDS ORDERED: ACETAMINOPHEN 1,000 MG/100 ML VIAL IV ONE (23:54)
--- NOTE | 2023-03-24 00:12 | Operative Report ---
PG Post Operative Report Pre & Post Diagnosis Operation Date: 03/23/23 21:50 Pre-Op Diagnosis: Appendicitis Post-Op Diagnosis: Appendicitis I identified the patient and participated in the time-out.: Yes Procedure Operation Date: 03/23/23 21:50 Actual Procedures p Laparoscopic Appendectomy(Not Applicable) - Krish Ponce MD, FACS Surgeon Krish Ponce MD, FACS Public Affairs Manager cristhian blackburn Estimated Blood Loss 10 Findings Consistent with Post-Op Diagnosis Specimens Appendix Description of Procedure Patient brought in the operating room with acute appendicitis Pneumatic stockings orogastric tube replaced her abdomen was prepped and draped in usual fashion Half percent plain Marcaine was used to anesthetize all incisions-incision was made above the umbilicus carried dissection down to the fascia placing a varies needle producing pneumoperitoneum 11 mm port was placed this level and under visualization a 5 mm port placed suprapubically And a 12 mm port placed left lower quadrant Patient did have adhesions to the anterior abdominal wall which were taken down Her appendix was lateral and slightly retrocecal and severely inflamed thickened and adherent We are gradually able to mobilize the appendix transect the base and the mesoappendix using Endo ROSENDO brown loads Because of the severity of the appendicitis I felt a drain will be placed-#15 round Giles-Mejia drain Was placed through the 5 mm port site secured using 3-0 nylon suture it was placed into the right lower quadrant and pelvis All ports were removed after the appendix was placed into an Endobag and removed Fascia at the umbilicus closed using 0 Vicryl suture Fascia in the left lower quadrant closed using 0 PDS suture Skin at the umbilicus closed using 4-0 Monocryl and Dermabond Skin in the left lower quadrant closed using subcuticular 4-0 Monocryl and Steri-Strips patient transferred recovery room in stable condition I attest to the content of the Intraoperative Record and any orders documented therein. Any exceptions are noted below.
--- NOTE | 2023-03-24 00:23 | Anesthesiology Progress Note ---
Date of Service March 24, 2023 Anesthesia Post Procedure Vital Signs Vital Signs: Temp Pulse Pulse Resp BP BP Pulse Ox 03/23/23 22:19 03/23/23 21:15 73 03/23/23 21:13 77 18 124/76 97 03/23/23 19:07 73 18 123/71 96 03/23/23 17:56 36.5 C 81 20 115/82 98 O2 Del Method 03/23/23 22:19 Room Air 03/23/23 21:15 03/23/23 21:13 Room Air 03/23/23 19:07 Room Air 03/23/23 17:56 Room Air Pain Intensity Abdomen: Pain Intensity: 5 Transfer of Care Handoff Completed per policy Notes Mental Status: alert / awake / arousable Patient Amnestic to Procedure: Yes Nausea / Vomiting: adequately controlled Pain: adequately controlled Airway Patency, RR, SpO2: stable & adequate BP & HR: stable & adequate Hydration State: stable & adequate Anesthetic Complications: no major complications apparent
[2023-03-24] MEDS ORDERED: IBUPROFEN 600 MG TAB PO PRN (01:38)
[2023-03-24] MEDS ORDERED: ONDANSETRON INJ 2 MG/ML 2 ML VIAL IV PRN (01:38)
[2023-03-24] MEDS ORDERED: HYDROmorphone INJ 0.5 MG/0.5 ML SYR IV PRN ×2 (01:38)
[2023-03-24] MEDS ORDERED: oxyCODONE HCL IR 5 MG TAB (IMMEDIATE RELEASE) PO PRN (01:38)
[2023-03-24] MEDS ORDERED: PROMETHAZINE HCL 12.5 MG in SODIUM CHLORIDE 0.9% 50 ML IV PRN (01:38)
[2023-03-24] MEDS ORDERED: SODIUM CHLORIDE 0.9% 1000ML 1,000 ML IV SCH (01:38)
[2023-03-24] MEDS ORDERED: ACETAMINOPHEN 325 MG TAB PO PRN (01:38)
--- NOTE | 2023-03-24 05:22 | Surgery Progress Note ---
Date of Service March 24, 2023 Assessment & Plan (1) Appendicitis: Plan: Status post laparoscopic appendectomy on 03/23/2023 (postop day #1) Continue analgesics Continue antiemetics Thus far patient has tolerated clear liquids and we will advance as tolerated Continue GABO drain to bulb suction Encourage use of incentive spirometer and encourage ambulation If patient remains hospitalized consideration can be given to adding Lovenox for DVT prevention Admission and Anticipated Discharge Date Admission Date: March 24, 2023 Supervising Physician Co-Signing Physician Notes Dr. Poncepatient had relatively severe acute acute appendicitis-I believe her appendix appeared to be necrotic It was difficult to dissect out the appendix as it was very inflamed and scarred She does have some nausea which is not unexpected We will continue her IV fluids and medications as well as antibiotics Try to encourage ambulation of possible Check some a.m. labs Subjective Patient is resting comfortably in bed. She notes that the abdominal pain that was present before surgery has improved and she only notes some minor pain at surgical incisions. She denies any nausea or vomiting. Since her surgery she has tolerated clear liquids without exacerbation of abdominal pain. She has not passed any flatus or had a bowel movement since surgery. She denies any shortness of breath. Physical Exam Gastrointestinal (Abdomen): Abdomen is soft and nondistended. Bowel sounds are hypoactive. Patient has appropriate pain near surgical incisions. Her surgical incisions are clean, dry, and intact. GABO drain is in place draining serosanguineous fluid and is drained approximately 30 cc since her surgery. Results & Data Vital Signs (Past 12 Hours) Vital Signs Temp Pulse Pulse Pulse Resp BP BP 03/24/23 03:47 36.4 C L 65 16 101/64 03/24/23 02:30 36.6 C 61 16 104/68 03/24/23 02:15 03/24/23 02:05 36.7 C 63 16 109/72 03/24/23 01:30 36.6 C 69 16 107/65 03/24/23 01:10 73 20 104/65 03/24/23 01:00 36.6 C 88 14 105/65 03/24/23 00:50 62 12 100/64 03/24/23 00:40 68 12 110/63 03/24/23 00:30 69 17 111/65 03/24/23 00:20 36.2 C L 77 16 111/74 03/23/23 22:19 03/23/23 21:15 73 03/23/23 21:13 77 18 124/76 03/23/23 19:07 73 18 123/71 03/23/23 17:56 36.5 C 81 20 115/82 Pulse Ox O2 Del Method O2 Flow Rate 03/24/23 03:47 96 Nasal Cannula 2 03/24/23 02:30 94 Nasal Cannula 2 03/24/23 02:15 Nasal Cannula 2 03/24/23 02:05 94 Nasal Cannula 2 03/24/23 01:30 94 Nasal Cannula 2 03/24/23 01:10 94 Nasal Cannula 2 03/24/23 01:00 99 Nasal Cannula 2 03/24/23 00:50 94 Room Air 03/24/23 00:40 96 Oxymask 4 03/24/23 00:30 95 Oxymask 4 03/24/23 00:20 96 Oxymask 6 03/23/23 22:19 Room Air 03/23/23 21:15 03/23/23 21:13 97 Room Air 03/23/23 19:07 96 Room Air 03/23/23 17:56 98 Room Air PG Care Time/CCT Total # of Minutes Spent Total Time Spent with Patient: Total time spent is greater than 50% in coordination of care (as documented) at patient's floor/unit and/or counseling patient: Coding Level of Care Code None Diagnoses Appendicitis K37
[2023-03-24] MEDS ORDERED: LEVOTHYROXINE SODIUM 100 MCG TABLET PO SCH (06:30)
--- NOTE | 2023-03-24 07:16 | Electrocardiogram Report ---
Test Reason : Blood Pressure : / mmHG Vent. Rate : 070 BPM Atrial Rate : 070 BPM P-R Int : 166 ms QRS Dur : 090 ms QT Int : 392 ms P-R-T Axes : 052 046 034 degrees QTc Int : 423 ms Normal sinus rhythm Normal ECG When compared with ECG of 24-JUL-2021 07:05, No significant change was found Confirmed by Sean Ley ([id number]) on 03/24/2023 7:15:57 AM Referred By: REFERRED SELF Confirmed By:Jose Ley
[2023-03-24 08:19] LABS: Hematocrit (blood only) 36.6 % (37.0-47.0); Hemoglobin 12.3 g/dl (12.0-16.0); Mean Corpuscular Hemoglobin 29.6 pg (25.0-34.0); Mean Corpuscular Hgb Conc 33.6 g/dL (32.0-36.0); Mean Corpuscular Volume 88.2 fL (80.0-100.0); Platelet Count 154 K/uL (130-400); RDW Coefficient of Variation 13.2 % (11.5-14.5); RDW Standard Deviation 42.7 fL (36.4-46.3); Red Blood Count 4.15 M/uL (4.20-5.40); White Blood Count 8.64 K/ul (4.8-10.8)
[2023-03-24 08:36] LABS: Albumin Globulin Ratio 1.2 (0.9-2); Albumin Level 3.4 gm/dl (3.4-5.0); BUN Creatinine Ratio 21.6 (10-20); Bilirubin,Total 0.7 mg/dl (0.2-1.0); Calcium 8.2 mg/dl (8.6-10.3); Creatinine Clr Calc Pharmacy 75.7 ml/min; Est GFR (African American) 84.5 ml/min; Est GFR (Non-African American) 72.9 ml/min; Globulin 2.9 gm/dl (2.5-4.0); Phosphorus 3.9 mg/dl (2.5-4.9); Potassium 4.4 mmol/L (3.5-5.1); Total Protein 6.3 gm/dl (6.0-8.3)
[2023-03-24 08:43] LABS: Basophils # (auto) 0.02 K/uL (0-0.2); Basophils % (auto) 0.2 %; Eosinophils # (auto) 0.01 K/uL (0-0.50); Eosinophils % (auto) 0.1 %; Immature Granulocytes # (auto) 0.06 K/uL (0.01-0.20); Immature Granulocytes % (auto) 0.7 %; Lymphocytes # (auto) 0.45 K/uL (1.2-3.4); Lymphocytes % (auto) 5.2 %; Monocytes # (auto) 0.28 K/uL (0.11-0.59); Monocytes % (auto) 3.2 %; Neutrophils # (auto) 7.82 K/uL (1.40-6.50); Neutrophils % (auto) 90.6 %
[2023-03-24] MEDS ORDERED: ENOXAPARIN INJ 40 MG/0.4 ML SYR SQ SCH (09:00)
--- NOTE | 2023-03-27 06:54 | Discharge Summary ---
Date of Service March 27, 2023 Admission HPI Per Admitting Provider This is a 57-year-old female who developed some abdominal pain approximately 2 days ago. Patient notes that the pain is located primarily in the right lower quadrant and she does not note any modifying factors. She does not had any fevers, shakes, or chills. She has not had any associated nausea or vomiting. Patient notes that she has had 1 prior abdominal surgery as she has had a laparoscopy for an ectopic . The patient notes that she leads an active lifestyle and does not get chest pain or shortness of breath with her daily activities and says that she can easily walk 1 mile on a flat surface without any difficulty Since arrival to the hospital the patient has had labs and imaging which independent reviewed. CBC revealed white blood cell count, hemoglobin, hematocrit, and platelet count were all within normal range. Chemistry profile showed sodium, potassium, BUN, and creatinine were normal. There is no elevation of LFTs or lipase. Urinalysis did show 1+ leukocyte Estrace but was otherwise not indicative of infection. CT scan of the abdomen and pelvis showed the patient had an acute appendicitis as the appendix was inflamed and had wall thickening and was dilated to approximate 11 mm. Periappendiceal inflammation was noted. There is no evidence of abscess or rupture. At the time my interview the patient was resting comfortably in bed and she was in no distress. Principal Diagnosis Acute appendicitis Discharge Exam Patient awake and alert Tolerating diet Pain controlled with p.o. pain medication Abdomen is stable with dry incisions Discharge Data Allergies Allergy/AdvReac Type Severity Reaction Status Date / Time codeine Allergy Severe NAUSEA/VOMI Unverified 07/24/21 07:23 TTING Consultations 03/23/23 22:00 ED Decision to Admit Stat Procedures Performed Operation Date: 03/23/23 21:50 Actual Procedures p Laparoscopic Appendectomy(Not Applicable) - Krish Ponce MD, FACS Ordered Studies 03/23/23 19:23 CT abd pelvis IV con only Stat Hospital Course (1) S/P laparoscopic appendectomy: Patient brought in the hospital after laparoscopic appendectomy She did have some nausea postoperatively but this did resolve She was felt stable for discharge the following day to be followed in the surgical office within 1 to 2 weeks Total Time Total Time Spent Total Time Spent (In Minutes): 20 Discharge Plan Discharge Items Patient Disposition: Home - Self-Care Reason For Visit: ACUTE APPENDICITIS Discharge Diagnosis: Appendectomy Activity: As commented below Activity Comment: Walk daily Lifting: No more than 10 pounds Bathing: May shower/bathe in 3 days Sexual Activity: When tolerated Exercise Comment: Weight 3 weeks Driving/Machine Use: Resume 3 days after discharge Non-emergency contact: Primary Care Provider and Surgeon Call non-emergency contact if: you have any medication questions, your pain is not controlled, your temperature is above 101 and your wound has increased cary agrawal Follow-up/Referrals: Krish Ponce MD, FACS [Physician] - 04/06/23 9:15 am (Call office for an appointment in 1-2 weeks) Bella Navarro MD [Primary Care Provider] - Diet: Regular Addtl Attending Provider Instructions: Call office with questions Pending Studies at Discharge: No Stand-Alone Forms: [facility] Medications and DC Order Prescriptions: New amoxicillin-pot clavulanate 875-125 mg tablet 1 tab PO BID Qty: 10 0RF oxycodone 5 mg tablet 5 - 10 mg PO Q6H PRN (Reason: pain) Qty: 30 0RF Continued multivitamin Tablet 1 tab PO QAM levothyroxine [Synthroid] 100 mcg tablet 100 mcg PO HS ibuprofen 200 mg Tablet 400 mg PO Q6H PRN (Reason: Headache) Discharge Orders: Discharge Order (Routine); Ordered 03/24/23 Ordered By: Krish Ponce Admission Data Admit Date/Time: 03/24/23 00:07 Attending Provider: Krish Ponce Admit Provider: Krish Ponce Primary Care Provider: Bella Navarro Other Interventions: Discharge Summary Assessment (RN) Last Done: 03/24/23 14:38 Coding Level of Care Code 78663 IN/OBS DISCH 30 MIN/LESS Diagnoses S/P laparoscopic appendectomy Z90.49
== END 2023-03-24 15:30 | disposition home or self-care (01) | DRG 343 ==
LOC: ED 17:50 → OR 22:18 → 3W 03-24 00:07 → INTOOBSV 03-24 00:07
DX: Z88.5 Allergy status to narcotic agent; Z79.890 Hormone replacement therapy; K37 Unspecified appendicitis; E06.3 Autoimmune thyroiditis